=== PATIENT | female | born 1965 | race Caucasian/White ===

== ENCOUNTER 2019-05-31 08:03 | Day surgery (SDC) | payer MEDICAID ==
[~2019-05-31] VITALS: Ht 157.5 cm; Wt 63.5 kg
[~2019-05-31 08:03] MED LIST: LACTATED RINGERS 1,000 ML IV SCH
[2019-05-31] MEDS ORDERED: TRAM50TA PO (10:20)
[2019-05-31] MEDS ORDERED: GABA-531 PO (10:20)
[2019-05-31] MEDS ORDERED: HYDR-4067 PO (10:20)
[2019-05-31] MEDS ORDERED: PROPOFOL 200MG/20ML VIAL IV ONE (11:44)
[2019-05-31] MEDS ORDERED: FENTANYL CITRATE/PF 50MCG/ML 2ML VIAL ONE (11:44)
[2019-05-31] MEDS ORDERED: MIDAZOLAM HCL 2 MG/2 ML VIAL ONE (11:44)
== END 2019-05-31 13:40 | disposition home or self-care (01) ==
LOC: OR 08:03
PROVIDERS: ATTEND Ophthalmology
DX: H11.002 Unspecified pterygium of left eye (principal); C34.90 Malignant neoplasm of unspecified part of unspecified bronchus or lung; Z79.899 Other long term (current) drug therapy; Z90.710 Acquired absence of both cervix and uterus
CPT/HCPCS: 65426; J2250; J2704; J3010